=== PATIENT | female | born 1990 | race African-American/Black ===

== ENCOUNTER 2018-03-09 11:47 | Emergency (ER) | payer OTHER ==
[~2018-03-09] VITALS: Ht 167.6 cm; Wt 72.6 kg
[~2018-03-09 11:47] MED LIST: BACTRIM DS TAB1 EACH PO; IBUPROFEN 800800 MG PO; NORCO 5-325 TA1 EACH PO
[2018-03-09 12:05] VITALS: BP 126/66
[2018-03-09] MEDS ORDERED: NORCO 5-325 TA1 EACH PO (12:59)
== END 2018-03-09 13:31 | disposition home or self-care (01) ==
LOC: ER 11:47
DX: S93.401A Sprain of unspecified ligament of right ankle, initial encounter (principal); J45.909 Unspecified asthma, uncomplicated; X58.XXXA Exposure to other specified factors, initial encounter; Y93.89 Activity, other specified; Y92.89 Other specified places as the place of occurrence of the external cause; Y99.8 Other external cause status